=== PATIENT | female | born 1955 | race Caucasian/White ===

== ENCOUNTER 2019-05-22 10:29 | Day surgery (SDC) | payer MEDICAID ==
[~2019-05-22] VITALS: Ht 175.3 cm; Wt 76.4 kg
[~2019-05-22 10:29] MED LIST: FLUT1AER3 IH; IPRA4AER IH; IPRNEB IH; METO-558 PO; ONDA4 PO; RIVA20TA PO; SACU1TAB PO; SODIUM CHLORIDE 0.9% 1,000 ML IV ONE
[2019-05-22] MEDS ORDERED: LIDOCAINE/PF 2% 5 ML VIAL IM ONE (10:30)
[2019-05-22] MEDS ORDERED: PROPOFOL 1% 20 ML VIAL IVP ONE (10:30)
[2019-05-22] MEDS ORDERED: SODIUM CHLORIDE 0.9% 1,000 ML IV ONE (11:00)
== END 2019-05-22 14:25 | disposition home or self-care (01) ==
LOC: SURGERY 10:29
PROVIDERS: ATTEND Student in an Organized Health Care Education/Training Program
DX: Z12.11 Encounter for screening for malignant neoplasm of colon (principal); R10.12 Left upper quadrant pain; R11.2 Nausea with vomiting, unspecified; D12.5 Benign neoplasm of sigmoid colon; D12.3 Benign neoplasm of transverse colon; K57.30 Diverticulosis of large intestine without perforation or abscess without bleeding; K64.8 Other hemorrhoids; K62.6 Ulcer of anus and rectum; K29.50 Unspecified chronic gastritis without bleeding; K21.0 Gastro-esophageal reflux disease with esophagitis; K22.8 Other specified diseases of esophagus; K31.89 Other diseases of stomach and duodenum; K22.70 Barrett's esophagus without dysplasia; I48.91 Unspecified atrial fibrillation; F17.210 Nicotine dependence, cigarettes, uncomplicated; J44.9 Chronic obstructive pulmonary disease, unspecified; I13.0 Hypertensive heart and chronic kidney disease with heart failure and stage 1 through stage 4 chronic kidney disease, or unspecified chronic kidney disease; N18.9 Chronic kidney disease, unspecified; I50.9 Heart failure, unspecified; Z86.73 Personal history of transient ischemic attack (TIA), and cerebral infarction without residual deficits; Z79.899 Other long term (current) drug therapy
CPT/HCPCS: 45385; 43239; 88305; 88309; 88312; 93005; C1769; J2704; J3490; J7030